=== PATIENT | female | born 1970 | race Caucasian/White ===

== ENCOUNTER → 2021-02-24 | Outpatient (CLI) | payer OTHER ==
[~2021-02-24] MED LIST: MELO15TA24 PO
== END | disposition home or self-care (01) ==
LOC: STAR 13:16
PROVIDERS: ATTEND Orthopaedic Surgery
DX: Z20.822 Contact with and (suspected) exposure to COVID-19 (principal); S46.012A Strain of muscle(s) and tendon(s) of the rotator cuff of left shoulder, initial encounter; M75.42 Impingement syndrome of left shoulder; X58.XXXA Exposure to other specified factors, initial encounter; Y93.89 Activity, other specified; Y92.89 Other specified places as the place of occurrence of the external cause; Y99.8 Other external cause status
CPT/HCPCS: U0003; U0005

== ENCOUNTER 2021-03-02 09:02 | Day surgery (SDC) | payer OTHER ==
[~2021-03-02] VITALS: Ht 142.2 cm; Wt 54.6 kg
[2021-03-02] MEDS ORDERED: EPINEPHRINE 1 MG/ML, 1ML ONE (09:24)
[2021-03-02] MEDS ORDERED: BUPIVACAINE/PF 0.25% ONE (09:24)
[2021-03-02 09:35] VITALS: BP 128/66
[2021-03-02] MEDS ORDERED: LIDOCAINE-MPF 1%, 2ML ONE (09:42)
[2021-03-02] MEDS ORDERED: CHLORHEXIDINE 15 ML UDC ONE (09:42)
[2021-03-02 09:46] LABS: HCG UR SG 1.024 (1.003-1.030)
[2021-03-02] MEDS ORDERED: LACTATED RINGERS 1,000 ML IV SCH (10:00)
[2021-03-02] MEDS ORDERED: CHLORHEXIDINE 15 ML UDC PO ONE (10:00)
[2021-03-02] MEDS ORDERED: LIDOCAINE-MPF 1%, 2ML INFIL ONE (10:00)
[2021-03-02] MEDS ORDERED: CEFAZOLIN 1,000 MG ONE (11:03)
[2021-03-02] MEDS ORDERED: PROPOFOL 10 MG/ML, 20ML ONE (11:03)
[2021-03-02] MEDS ORDERED: SUCCINYLCHOLINE 20 MG/ML, 10ML ONE (11:03)
[2021-03-02] MEDS ORDERED: ROCURONIUM 10 MG/ML,10ML ONE (11:03)
[2021-03-02] MEDS ORDERED: FENTANYL PF 250 MCG/5ML ONE (11:03)
[2021-03-02] MEDS ORDERED: GLYCOPYRROLATE 0.2MG/1ML, 5ML ONE (11:03)
[2021-03-02] MEDS ORDERED: DEXAMETHASONE 4 MG/ML, 1ML ONE (11:03)
[2021-03-02] MEDS ORDERED: ONDANSETRON 2MG/ML, 2ML ONE (11:03)
[2021-03-02] MEDS ORDERED: NEOSTIGMINE 1 MG/ML, 10ML ONE (11:03)
[2021-03-02] MEDS ORDERED: PROMETHAZINE 25 MG/ML, 1ML ONE (12:25)
[2021-03-02] MEDS: PROMETHAZINE 25 MG/ML, 1ML IVPush PRN ×2 (12:27→12:58)
[2021-03-02] MEDS ORDERED: HYDROmorphone 1 MG/ML, 1ML INJ IVPush PRN (12:30)
[2021-03-02] MEDS ORDERED: OXYcodone 5 MG/5 ML ORAL.SOL UDC PO PRN (12:30)
[2021-03-02] MEDS ORDERED: ONDANSETRON 2MG/ML, 2ML IVPush PRN (12:30)
[2021-03-02] MEDS ORDERED: FENTANYL PF 100 MCG/2ML IV PRN (12:30)
[2021-03-02] MEDS ORDERED: HALOPERIDOL 5 MG/ML IV PRN (12:30)
[2021-03-02] MEDS ORDERED: LABETALOL 5MG/ML, 20ML IV PRN (12:30)
[2021-03-02] MEDS ORDERED: EPHEDRINE 50 MG/ML, 1ML IM PRN (12:30)
[2021-03-02] MEDS ORDERED: MEPERIDINE/PF 25MG/0.5ML IVPush PRN (12:30)
[2021-03-02] MEDS ORDERED: EPHEDRINE 50 MG/ML, 1ML IVPush PRN (12:30)
[2021-03-02] MEDS ORDERED: hydrALAzine 20 MG/ML, 1ML IV PRN (12:30)
[2021-03-02] MEDS ORDERED: ACETAMINOPHEN 325 MG TABLET PO PRN (12:30)
[2021-03-02] MEDS ORDERED: MEPERIDINE/PF 25MG/ML,1ML ONE (12:34)
[2021-03-02] MEDS ORDERED: MIDAZOLAM 1 MG/ML, 2ML ONE (13:06)
[2021-03-02] MEDS ORDERED: EPHEDRINE 50 MG/ML, 1ML IM STA (13:13)
[2021-03-02] MEDS ORDERED: EPHEDRINE 50 MG/ML, 1ML ONE (13:16)
[2021-03-02] MEDS ORDERED: hydrOXYzine 25 MG/ML IM PRN (13:30)
== END 2021-03-02 17:00 | disposition home or self-care (01) ==
LOC: OUT 09:02
PROVIDERS: ATTEND Orthopaedic Surgery
DX: S46.012A Strain of muscle(s) and tendon(s) of the rotator cuff of left shoulder, initial encounter (principal); S43.432A Superior glenoid labrum lesion of left shoulder, initial encounter; M75.42 Impingement syndrome of left shoulder; M75.02 Adhesive capsulitis of left shoulder; G89.18 Other acute postprocedural pain; X58.XXXA Exposure to other specified factors, initial encounter; Y93.89 Activity, other specified; Y92.89 Other specified places as the place of occurrence of the external cause; Y99.8 Other external cause status
CPT/HCPCS: 29826; 29827; 64415; 81025; C1713; J0171; J0330; J0690; J1100; J2175; J2250; J2405; J2550; J2704; J2710; J3010; J3410; J7120